=== PATIENT | male | born 1950 | race Caucasian/White ===

== ENCOUNTER 2023-10-21 14:57 | Emergency (ER) | payer BC, SELFPAY ==
--- NOTE | ~2023-10-21 | XR_ITS ---
EXAMINATION: XR CHEST CLINICAL INFORMATION: Shortness of breath COMPARISON: None available. TECHNIQUE: Frontal view of the chest was obtained. FINDINGS: No focal consolidation. No pneumothorax. Trachea is midline. Cardiac mediastinal silhouette is not enlarged. No large pleural effusion. Osseous structures are intact. Linear radiopaque density overlying the left upper chest possibly external to the patient, correlation with physical exam. XR/XR chest 1V IMPRESSION: 1. No acute cardiopulmonary process. 2. Linear radiopaque density overlying the left upper chest possibly external to the patient, correlation with physical exam.
[2023-10-21 15:44] VITALS: BP 146/97; PULSE 76; RESP 20; TEMP 36.6; O2SAT 95; BMI 24.9
--- NOTE | 2023-10-21 15:46 | ED_ITS ---
HPI - General Adult General Chief complaint: Asthma Stated complaint: Allergic reaction Time Seen by Provider: 10/21/23 16:20 Source: patient and RN notes reviewed Mode of arrival: ambulatory Limitations: no limitations History of Present Illness ED Provider: Lucero Miguel PA-C HPI narrative: This is a 73-year-old male, with a history of asthma, who presents emergency department with complaints of shortness of breath and wheezing. Patient is originally from [place] and recently drove appear and states that he believes that the pollen is worse in this area causing his asthma to be triggered. He also states that he was around a pool, and states that Chlorine triggers his asthma. Denies any chest pain, fevers, chills, palpitations. No other questions or concerns at this time. MD complaint: Shortness breath, wheezing Onset (ago): day(s) Radiation: non-radiation Relieving factors: none Exacerbating factors: none Associated symptoms: denies other symptoms Treatments prior to arrival: none Related Data Previous Rx's ?Medication ?Instructions ?Recorded prednisone 20 mg tablet 40 mg (2 x 20 mg) PO DAILY #10 tabs 10/21/23 Allergies Allergy/AdvReac Type Severity Reaction Status Date / Time pollen extracts Allergy Wheezing Verified 10/21/23 15:45 chlorine Allergy Wheezing Uncoded 10/21/23 15:45 Review of Systems 2 Review of Systems: Yes all other systems are reviewed and are negative Constitutional: Constitutional: Reports as per [facility] Social History Social History Advance Directives: No Advance Directives Information Provided: No Physical Exam ED Vital Signs: Vital Signs - 24 hr 10/21/23 15:44 10/21/23 16:08 10/21/23 18:05 Temperature 98 F 98.3 F Pulse Rate 76 81 90 Respiratory Rate 20 20 20 Blood Pressure 146/97 H 119/74 Pulse Oximetry 95 Oxygen Delivery Method Room Air 10/21/23 18:29 10/21/23 19:45 Temperature 98.1 F Pulse Rate 83 94 Respiratory Rate 18 20 Blood Pressure 141/74 H Pulse Oximetry 96 Oxygen Delivery Method Room Air BMI result Body Mass Index 24.9 Const General: cooperative, comfortable and no acute distress Orientation/consciousness: patient oriented x3 Limitations: no limitations HENMT Head: Yes normal to inspection, Yes normocephalic and Yes atraumatic Ears: hearing grossly normal bilaterally General nose exam: Normal external nose present Face and sinus: Yes normal facial exam Mouth: Normal oral and palatal mucosa present, oropharynx normal and moist mucous membranes Throat: Yes posterior oropharynx normal Eyes General: appearance normal, both eyes and all related structures Eyelids: Yes eyelids normal Conjunctivae: conjunctivae normal Sclerae: sclerae normal Pupils: Equal, round and reactive pupils present EOM: EOMs intact bilaterally Neck Neck: Yes normal visual inspection, Yes full ROM and Yes no lymphadenopathy Lymphatic: no lymphadenopathy noted Chest Chest palpation & inspection: normal inspection of the chest Resp Other: Inspiratory and expiratory wheezes noted throughout all lung escobar Effort & Inspection: normal respiratory effort and able to speak in complete sentences Cardio Rate: regular rate Rhythm: regular rhythm Heart sounds: S1 normal heart sound present and S2 normal heart sound present GI Inspection: Yes normal to inspection Skin General skin exam: no rashes or lesions noted Trauma: no lacerations or abrasions Wounds: no wounds Neuro General: patient oriented x3 and moves all extremities Cranial nerves: Yes Equal, round and reactive pupils present Extrem General: Yes normal to inspection Right upper extremity: normal to inspection Left upper extremity: normal to inspection Right lower extremity: normal to inspection Left lower extremity: normal to inspection Course Course Course Narrative: RME- 73 year old male with history of asthma presents for evaluation of shortness of breath, coughing and wheezing. No relief from his inhalers. The patient does have diffuse, coarse wheezing on auscultation. Plan for breathing treatment. Reevaluation(s) Reevaluation #1: Patient re-evaluated post breathing treatment and IV medications. The patient's lungs almost clear to auscultation. He has a very faint wheeze heard in the bilateral bases. He reports feeling much better. We ambulated the patient with an oxygen saturation maintaining at 96% or better. The patient is stable for discharge. Will discharge him with prednisone Time: 19:27 Medications Administered Discontinued Medications Generic Name Dose Route Start Last Admin Trade Name Freq PRN Reason Stop Dose Admin Albuterol Sulfate 2.5 mg/ 5 mg 10/21/23 16:02 10/21/23 16:05 Albuterol Sulfate 2.5 mg INHALE 10/21/23 16:03 5 mg ONCE ONE Administration Albuterol Sulfate 2.5 mg/ 0 mg 10/21/23 18:25 10/21/23 18:28 Albuterol/Ipratropium 3 ml INHALE 10/21/23 18:26 1 dose ONCE ONE Administration Magnesium Sulfate 2 gm in 50 mls @ 25 mls/hr 10/21/23 18:52 10/21/23 18:58 Magnesium Sulfate/H2o IV 10/21/23 20:51 25 mls/hr ONCE ONE Administration Methylprednisolone Sodium Succinate 125 mg 10/21/23 16:19 10/21/23 16:33 Methylprednisolone Sod Succ 125 Mg/2 Ml Vial IVPUSH 10/21/23 16:20 125 mg ONCE ONE Administration Medical Decision Making Medical Decision Making [facility] Narrative: This is a 73-year-old male, with a history of presents emergency department complaints of shortness breath and wheezing which started yesterday. He states he believes that the pollen as well as chlorine has triggered his asthma. On arrival vital signs within normal limits. He is speaking in full sentences however lungs with inspiratory and expiratory wheezes noted throughout all lung escobar. Patient given albuterol updraft however no significant improvement. Labs, EKG, chest x-ray was obtained. IV Solu-Medrol ordered. Patient re-evaluated, oxygen saturation 90% on room air, 2nd updraft ordered, magnesium 2 g IV ordered Differential Diagnosis Differential Diagnoses: The differential diagnosis associated with the presentation includes Bronchitis, pneumonia, reactive airway disease, asthma exacerbation, acs - unlikely Lab Data [facility] Lab Attestation statement: I reviewed the patient's lab results. No leukocytosis, stable H&H, chemistry nondiagnostic, troponin less than 2.7 10/21/23 16:29 10/21/23 16:29 Labs: Lab Results 10/21/23 Range/Units 16:29 WBC 8.6 (4.8-10.8) X10*3/uL RBC 5.27 (4.60-5.80) X10*6/uL Hgb 15.3 (14.0-18.0) g/dl Hct 44.5 (42.0-52.0) % MCV 84.4 (80.0-98.0) fL MCH 29.0 (27.0-33.0) pg MCHC 34.4 (31.0-36.0) g/dl RDW 13.0 (11.0-16.0) % Plt Count 313 (160-400) X10*3/uL MPV 8.8 L (9.4-12.4) fL Immature Gran % (Auto) 0.2 (0.0-0.4) % Neut % (Auto) 48.8 (45-73) % Lymph % (Auto) 27.9 (20-40) % [place] % (Auto) 9.5 (2-11) % Eos % (Auto) 12.4 H (0-4) % Baso % (Auto) 1.2 (0-2) % Lymph # (Auto) 2.4 (1.2-4.9) X10*3/uL [place] # (Auto) 0.8 (0.1-1.2) X10*3/uL Eos # (Auto) 1.1 H (0.0-0.4) X10*3/uL Baso # (Auto) 0.1 (0.0-0.2) X10*3/uL Abs Immat Gran (auto) 0.02 (0.00-0.03) X10*3/uL Absolute Neuts (auto) 4.2 (2.0-8.3) x10*3/uL Absolute Nucleated RBC 0.000 (0.0-0.012) X10*3/uL Nucleated RBC % (auto) 0.0 (0.0-0.2) /100WBC Sodium 146 H (135-145) mmol/L Potassium 3.9 (3.3-5.1) mmol/L Chloride 110 H (96-108) mmol/L Carbon Dioxide 26 (22-29) mmol/L Anion Gap 14 (12-20) BUN 20 H (9-16) mg/dL Creatinine 1.13 (0.5-1.4) mg/dL Estim Creat Clear Calc 56.0 Estimated GFR > 60 Random Glucose 92 (60-115) mg/dL Calcium 9.7 (8.4-10.2) mg/dL Magnesium 2.2 (1.6-2.6) mg/dL Total Bilirubin 0.4 (0.0-1.0) mg/dL Direct Bilirubin 0.2 (0.0-0.5) mg/dL AST 19 (5-37) U/L ALT 13 (0-40) U/L Alkaline Phosphatase 108 (39-117) U/L Troponin I High Sens 6.3 (<3.5-35.0) ng/L Total Protein 7.2 (6.5-8.0) g/dL Albumin 4.2 (3.5-5.0) g/dL Independent Interpretation I performed an independent interpretation of an: EKG Interpretation: Normal sinus rhythm at a ventricular rate of 86 beats per minute, CT interval 160, QTC 471, no ST elevation or depression. Radiology Impression Discussion of test interpretation with radiology: I have reviewed the radiologist's reading. Radiologist Impression: XR/XR chest 1V IMPRESSION: 1. No acute cardiopulmonary process. 2. Linear radiopaque density overlying the left upper chest possibly external to the patient, correlation with physical exam. Dictated By: Aliya Wolff MD Chronic Conditions Patient?s care impacted by: Other (Asthma) Discharge Plan Discharge Clinical Impression: Asthma with acute exacerbation Patient Disposition: Home, Self-Care Instructions: Asthma (ED) Additional Instructions: Take prednisone 40 mg daily for the next 5 days Continue your inhalers as needed Follow-up with your primary doctor Prescriptions: New prednisone 20 mg tablet 40 mg PO DAILY Qty: 10 0RF Interventions: ED Discharge Assessment Last Done: 10/21/23 19:45 Discharge Date/Time: 10/21/23 19:47 Print Language: Kyrgyz
[2023-10-21] MEDS: Albuterol Sulfate 2.5 MG, Albuterol Sulfate (0.083%) 2.5 MG 5 MG INHALE (16:05)
[2023-10-21 16:08] VITALS: PULSE 81; RESP 20; O2SAT 97
--- NOTE | 2023-10-21 16:19 | ECG_ITS ---
Test Reason : SOB Blood Pressure : / mmHG Vent. Rate : 086 BPM Atrial Rate : 086 BPM P-R Int : 160 ms QRS Dur : 102 ms QT Int : 394 ms P-R-T Axes : 065 067 027 degrees QTc Int : 471 ms Normal sinus rhythm Normal ECG No previous ECGs available Referred By: Lucero Miguel Electronically Signed By:Jermaine Scales
[2023-10-21 16:33] LABS: MANUAL DIFF FLAG NO
[2023-10-21] MEDS: methylPREDNISolone Sod Succ 125 MG/2 ML VIAL IVPUSH (16:33)
[2023-10-21 16:36] LABS: Basophils Absolute Auto 0.1 X10*3/uL (0.0-0.2); Basophils Percent Auto 1.2 % (0-2); Eosinophils Absolute Auto 1.1 X10*3/uL (0.0-0.4); Eosinophils Percent Auto 12.4 % (0-4); Hematocrit 44.5 % (42.0-52.0); Hemoglobin 15.3 g/dl (14.0-18.0); Imm Gran Abs Auto 0.02 X10*3/uL (0.00-0.03); Imm Gran Pct Auto 0.2 % (0.0-0.4); Lymphocytes Absolute Auto 2.4 X10*3/uL (1.2-4.9); Lymphocytes Percent Auto 27.9 % (20-40); Mean Corpuscular HGB Conc 34.4 g/dl (31.0-36.0); Mean Corpuscular Volume 84.4 fL (80.0-98.0); Mean Platelet Volume 8.8 fL (9.4-12.4); Monocytes Absolute Auto 0.8 X10*3/uL (0.1-1.2); Monocytes Percent Auto 9.5 % (2-11); Neutrophils Absolute Auto 4.2 x10*3/uL (2.0-8.3); Neutrophils Percent Auto 48.8 % (45-73); Platelet Count 313 X10*3/uL (160-400); Red Blood Count 5.27 X10*6/uL (4.60-5.80); White Blood Count 8.6 X10*3/uL (4.8-10.8)
[2023-10-21 16:54] LABS: Alanine Aminotransferase 13 U/L (0-40); Albumin Level 4.2 g/dL (3.5-5.0); Alkaline Phosphatase 108 U/L (39-117); Anion Gap 14 (12-20); Aspartate Amino Transferase 19 U/L (5-37); Bilirubin Direct 0.2 mg/dL (0.0-0.5); Bilirubin Total 0.4 mg/dL (0.0-1.0); Blood Urea Nitrogen 20 mg/dL (9-16); Calcium 9.7 mg/dL (8.4-10.2); Carbon Dioxide 26 mmol/L (22-29); Chloride 110 mmol/L (96-108); Estimated Glomerular Filt Rate > 60; Glucose Random 92 mg/dL (60-115); Magnesium 2.2 mg/dL (1.6-2.6); Potassium 3.9 mmol/L (3.3-5.1); Sodium 146 mmol/L (135-145); Total Protein 7.2 g/dL (6.5-8.0)
[2023-10-21 17:01] LABS: Troponin-I High Sensitivity 6.3 ng/L (<3.5-35.0)
[2023-10-21 18:05] VITALS: BP 119/74; PULSE 90; RESP 20; TEMP 36.8
[2023-10-21] MEDS: Albuterol Sulfate 2.5 MG, Albuterol/Iprat 2.5/0.5MG 3 ML 3 ML INHALE (18:28)
[2023-10-21 18:29] VITALS: PULSE 83; RESP 18; O2SAT 92
[2023-10-21] MEDS: Magnesium Sulfate/H2O 2 GM/50 ML PIGGYBACK IV (18:58)
[2023-10-21 19:45] VITALS: BP 141/74; PULSE 94; RESP 20; TEMP 36.7; O2SAT 96
== END 2023-10-21 19:47 | disposition home or self-care (01) ==
PROVIDERS: Physician Assistant Medical; Emergency Provider Internal Medicine
DX: J45.901 Unspecified asthma with (acute) exacerbation (principal)
CPT/HCPCS: 36415; 71045; 80048; 80076; 83735; 84484; 85025; 93005; 94640; 96374; 96375; 99284; J2919; J3475

== ENCOUNTER → 2023-10-21 16:19 | Outpatient (BNV) | payer BC, SELFPAY | PROVIDERS: Emergency Provider Internal Medicine; Visit Provider Internal Medicine Cardiovascular Disease | DX: R06.02 Shortness of breath (principal) | CPT/HCPCS: 93010 ==